=== PATIENT | female | born 1935 | race Caucasian/White ===

== ENCOUNTER → 2016-08-07 | Outpatient (CLI) | payer OTHER | END | disposition home or self-care (01) | LOC: CLISVCS 15:49 | PROVIDERS: ATTEND Internal Medicine Cardiovascular Disease | DX: J43.8 Other emphysema (principal); J94.8 Other specified pleural conditions; M48.56XA Collapsed vertebra, not elsewhere classified, lumbar region, initial encounter for fracture | CPT/HCPCS: 71020; 94620 ==

== ENCOUNTER 2017-03-16 11:02 | Emergency (ER) | payer OTHER ==
[~2017-03-16] VITALS: Ht 162.6 cm; Wt 70.0 kg
[2017-03-16 12:03] LABS: HEMATOCRIT 37.2 % (34.6-47.8); HEMOGLOBIN 12.5 g/dL (11.7-16.4); WHITE BLOOD COUNT 5.7 x10^3/uL (3.4-10)
[2017-03-16 12:22] LABS: ASPARTATE AMINO TRANSFERASE 13 U/L (15-37); BLOOD UREA NITROGEN 20 mg/dL (7-18)
[2017-03-16 12:26] LABS: IS PT STATUS REG ER OR PRE ER? YES
[2017-03-16] MEDS ORDERED: ATOR40TA PO (12:56)
[2017-03-16] MEDS ORDERED: BENA5TAB2 PO (12:56)
[2017-03-16] MEDS ORDERED: APIX5TAB PO (12:56)
[2017-03-16] MEDS ORDERED: METO50TA82 PO (12:56)
[2017-03-16 14:02] VITALS: BP 146/67
== END 2017-03-16 14:04 | disposition home or self-care (01) ==
LOC: ED 13:30
DX: R42 Dizziness and giddiness (principal); R51 Headache; E78.00 Pure hypercholesterolemia, unspecified; I10 Essential (primary) hypertension; J44.9 Chronic obstructive pulmonary disease, unspecified; Z86.73 Personal history of transient ischemic attack (TIA), and cerebral infarction without residual deficits; Z87.891 Personal history of nicotine dependence
CPT/HCPCS: 36415; 71010; 80053; 83880; 84484; 85025; 85610; 93005; 99285

== ENCOUNTER → 2018-06-08 | Outpatient (CLI) | payer OTHER ==
[~2018-06-08] MED LIST: APIX5TAB PO; ATOR40TA PO; BENA5TAB3 PO; METO50TA82 PO
== END | disposition home or self-care (01) ==
LOC: MERGE 06-04 13:00 → CVU 14:36
PROVIDERS: ATTEND Internal Medicine Cardiovascular Disease
DX: I08.0 Rheumatic disorders of both mitral and aortic valves (principal); I65.23 Occlusion and stenosis of bilateral carotid arteries; I10 Essential (primary) hypertension; E78.5 Hyperlipidemia, unspecified; I42.9 Cardiomyopathy, unspecified; Z87.891 Personal history of nicotine dependence; Z86.73 Personal history of transient ischemic attack (TIA), and cerebral infarction without residual deficits
CPT/HCPCS: 93306; 93880

== ENCOUNTER 2019-04-15 10:35 | Outpatient (CLI) | payer MEDICARE | END 2019-04-15 23:59 | disposition home or self-care (01) | LOC: CFH 10:35 | PROVIDERS: ATTEND Family Medicine | DX: M80.80XS Other osteoporosis with current pathological fracture, unspecified site, sequela (principal); M85.88 Other specified disorders of bone density and structure, other site; X58.XXXS Exposure to other specified factors, sequela | CPT/HCPCS: 77080 ==